=== PATIENT | female | born 1975 | race Caucasian/White ===

== ENCOUNTER 2016-05-10 11:28 | Emergency (ER) | payer OTHER, BC ==
[2016-05-10 11:49] VITALS: BP 122/88
[2016-05-10] MEDS ORDERED: Ketorolac 60 MG/2 ML SDV IM ONE (11:50)
[2016-05-10] MEDS ORDERED: Diphtheria,Pertussis(Acell),Tetanus Vaccine 0.5 ML Syringe IM ONE (13:01)
--- NOTE | 2016-05-10 14:46 | ER ---
Date of Service: 05/10/2016 REASON FOR VISIT: Injury. HISTORY: This is a 40-year-old white female, who sustained an injury at work this morning. She was walking on the [employer] when she fell through a hole that had no bottom in it and went on down to the next floor. She fell down all the way through with her right leg up to the thigh, scraping her thigh. She also injured her right upper extremity when she had her arm out to try and stop her fall and jammed it into a railing. She was helped up and out and brought in for assessment. She is complaining of pain in her mid to proximal humerus into the elbow. Little bit of tingling in the hand. No neck pain. No chest pain or trouble breathing. She does complain of abrasion on the thigh, but that is getting better. There is no other thigh pain or discomfort, and she is able to ambulate without discomfort. MEDICATIONS: Wellbutrin SR 150 mg daily and Lexapro 20 mg daily. ALLERGIES: None known. IMMUNIZATION: Last tetanus was about 10 years ago. OBJECTIVE: General: She is alert. Vital Signs: Weight is 330, temperature is 97.5, pulse is 95, BP is 122/88, respirations are 20. Extremities: The right upper extremity is held with a flexed elbow at her side across the abdomen. There is tenderness of the mid to proximal humerus. Little bit of tenderness about the elbow. Rest of the arm and distal extremities nontender. CMS is good. Neurovascular status is intact. She can move her hand, wrist, and elbow without any pain or discomfort. Decreased range of motion of the right shoulder, mainly because of pain in her proximal humerus. Clavicle is nontender. Scapula is nontender. The patient did decline evaluation of the abrasion on her right thigh. DIAGNOSTIC DATA: X-rays of the right elbow were unremarkable. X-rays of the right shoulder and right humerus indicated an acute comminuted proximal humerus fracture with mildly distracted greater tuberosity and a mildly impacted surgical neck. EMERGENCY ROOM TREATMENT: She did receive a tetanus update because of the presumed abrasion on the right thigh. She was also given Toradol 60 mg IM. ASSESSMENT: Acute comminuted proximal humerus fracture, right arm. PLAN: 1. The patient is reassured. She will be placed in a sling for comfort and immobilization. 2. Give hydrocodone 5/325 of 1 q.4 hours p.r.n. pain, #20 prescribed, no refills. 3. Follow up with Dr. Chavira, Orthopedist in [place]. Appointment made for this at 10:30 a.m. Work for safety forms completed. Return to work is undetermined at this time. She is to call or return if any problems or concerns. FM: 05/10/2016 13:31:43 MODL: 05/10/2016 14:32:30 /[id number] MTDD
== END 2016-05-10 13:40 | disposition home or self-care (01) ==
LOC: VM.ED 11:28
DX: S42.251A Displaced fracture of greater tuberosity of right humerus, initial encounter for closed fracture (principal); Z79.899 Other long term (current) drug therapy; W17.89XA Other fall from one level to another, initial encounter
CPT/HCPCS: 73030; 73060; 73070; 90715; 96372; 99283; J1885

== ENCOUNTER 2017-04-11 17:45 | Emergency (ER) | payer BC, OTHER ==
[2017-04-11 17:56] VITALS: BP 133/77
[2017-04-11] MEDS ORDERED: Take Home: Amoxicillin/Clavulanate K 875-125 MG Tab, 2 Tab Pack PO ONE (18:07)
--- NOTE | 2017-04-11 18:53 | EDM.PDOC ---
ED HPI GENERAL MEDICAL PROBLEM - General Chief Complaint: Bite:Animal, Insect Time Seen by Provider: 04/11/17 17:52 Source of Information: Reports: Patient History Limitations: Reports: No Limitations - History of Present Illness INITIAL COMMENTS - FREE TEXT/NARRATIVE: PtUzma was bit in the L thumb by her dog approx. 24 hours ago. She denies any fever or chills. She has noted increased swelling and erythema. States that the dog has had it's immunizations. Onset: Today Location: Reports: Upper Extremity, Left - Related Data Allergies Allergy/AdvReac Type Severity Reaction Status Date / Time No Known Allergies Allergy Verified 04/11/17 17:58 Home Meds: Home Meds Escitalopram [Lexapro] 20 mg PO DAILY 05/10/16 [History] Hydrocodone/Acetaminophen [Hydrocodon-Acetaminophen 5-325] 1 each PO Q4HR PRN # 20 tablet 05/10/16 [Rx] buPROPion HCl [Wellbutrin SR] 150 mg PO DAILY 05/10/16 [History] Past Medical History - Past Health History Medical/Surgical History: Denies Medical/Surgical History Psychiatric History: Reports: Anxiety, Depression Social & Family History - Tobacco Use Smoking Status *Q: Unknown Ever Smoked - Recreational Drug Use Recreational Drug Use: No ED ROS GENERAL - Review of Systems Review Of Systems: See Below Constitutional: Reports: No Symptoms Musculoskeletal: Reports: Hand Pain Skin: Reports: No Symptoms Neurological: Reports: No Symptoms. Denies: Paresthesia ED EXAM, GENERAL - Physical Exam Exam: See Below General Appearance: Alert, WD/WN, No Apparent Distress Extremities: Increased Warmth, Redness, Other (swelling, warmth, and erythema noted to the L thumb) Course - Vital Signs Last Recorded V/S: Last Vital Signs Temp 36.8 C 04/11/17 17:50 Pulse 100 04/11/17 17:50 Resp 18 04/11/17 17:50 BP 133/77 04/11/17 17:50 Pulse Ox 97 04/11/17 17:50 - Orders/Labs/Meds Meds: Medications Discontinued Medications Generic Name Dose Route Start Last Admin Trade Name Freq PRN Reason Stop Dose Admin Amoxicillin/Clavulanate Potassium 1 packet 04/11/17 18:07 04/11/17 18:14 Take Home: Amox/Clavulanate 875-12, 2 Tab Pac PO 04/11/17 18:08 1 packet ONETIME ONE Administration Departure - Departure Time of Disposition: 18:25 Disposition: Home, Self-Care 01 Clinical Impression: Cellulitis - Discharge Information Instructions: Animal Bite, Animal Bite, [id number] Referrals: Devika Lee [employer] [Primary Care Provider] - Forms: ED Department Discharge Additional Instructions: Augmentin 875mg twice daily for 10 days. Be sure to finish entire course. Ibuprofen 600mg every 6 hours for pain. Keep open to air as much as possible.
== END 2017-04-11 18:18 | disposition home or self-care (01) ==
LOC: VM.ED 17:45
DX: L03.012 Cellulitis of left finger (principal); F32.9 Major depressive disorder, single episode, unspecified; Z79.899 Other long term (current) drug therapy
CPT/HCPCS: 99283; A9270